=== PATIENT | female | born 2000 | race Caucasian/White ===

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

== ENCOUNTER 2021-02-07 15:58 | Outpatient (RCR) | payer OTHER, SELFPAY ==
--- NOTE | 2021-02-07 17:52 | PTOPEVAL ---
Thank you for referring Lenny Cottrell to [facility].? The patient is scheduled to be seen for therapy?for 1 additional visit. Please review, sign, date and return this plan of care PARVEZ. I agree with and certify that the following plan of care is medically necessary. Referring Physician Date Admitting Provider: Attending Provider: katie gilmore Referring Provider: *PT Outpatient Evaluation Start: 02/07/21 16:05 Freq: Status: Active Protocol: Document 02/07/21 16:00 YENI (Rec: 02/07/21 17:13 YENI [email or web address]) Therapy Assessment Status Assessment Status Assessment Status Evaluation Evaluation Information Problem Diagnosis patellofemoral pain left Onset 01/20/21 Subjective Information Pt. reports that she was Query Text:As Reported By Patient/ walking up steps at school and Family began noting left knee pain. She describes initial pain on the inside of the left knee. She reports that she no longer has much pain. She reports she has been doing regular exercise with some short distance running once to twice a week. She states that her goal is to decrease her left knee pain. Pain Assessment Self Report Self Report Pain Level 0 Pain Score Pain Score 0: Self Report Lower Extremity Range of Motion General Lower Extremity Range of Motion Gross Lower Extremity Range of Motion Pt. presents with 0-135 Comments degrees left knee AROM Lower Extremity Muscle Strength Testing General Lower Extremity Strength Gross Lower Extremity Strength -bilateral hip flexion 5/5 -bilateral hip extension 5/5 -bilateral hip abduction 5/5 -bilateral knee extension 5/5 -bilateral knee flexion 5/5 -bilateral ankle dorsiflexion 5/5 Palpation Assessment Palpation Palpation TTP noted at the pes anserine on the left with light palpation Special Tests-Lower Extremity Knee Special Tests Juan Miguel's Positive Left Valgus Stress Test Knee at 0 Degrees Positive Left Antonio's Positive Left Gait Assessment Gait Assessment Additional Ambulation Comments Pt. ambulates without deviation General Exercise General Exercises Exercise Description -SLS on BOSU x 1 minute x 2 Query Text:Elfego
== END 2021-02-14 17:51 | disposition home or self-care (01) ==
LOC: CHSPT 15:58
DX: M25.562 Pain in left knee (principal); Z98.890 Other specified postprocedural states
CPT/HCPCS: 97110; 97140; 97161

== ENCOUNTER 2021-07-05 10:33 | Outpatient (CLI) | payer OTHER, SELFPAY ==
[2021-07-05 10:59] LABS: Basophils Absolute Auto 0.11 K/mm3 (0.00-0.10); Basophils Percent Auto 0.8 % (0.0-1.0); Eosinophils Absolute Auto 0.55 K/mm3 (0.02-0.50); Eosinophils Percent Auto 4.1 % (1.0-6.0); Hematocrit 41.2 % (35.0-49.0); Hemoglobin 13.7 g/dL (12.0-15.0); Immature Granulocyte Absolute 0.04 K/mm3 (0.00-0.00); Immature Granulocyte Percent A 0.3 % (0.0-0.0); Lymphocytes Absolute Auto 2.24 K/mm3 (1.10-4.50); Lymphocytes Percent Auto 16.7 % (18.0-42.0); Mean Corpuscular HGB Conc 33.3 g/dL (32.0-36.0); Mean Corpuscular Hemoglobin 31.2 pg (27.0-31.0); Mean Corpuscular Volume 93.8 fL (78.0-102.0); Mean Platelet Volume 8.9 fl (9.2-11.8); Monocytes Absolute Auto 0.88 K/mm3 (0.10-0.90); Monocytes Percent Auto 6.6 % (2.0-11.0); Neutrophils Absolute Auto 9.6 K/mm3 (1.7-7.2); Neutrophils Percent Auto 71.5 % (50.0-70.0); Platelet Count Result 299 K/mm3 (150-420); Red Blood Count 4.39 M/mm3 (4.20-5.40); Red Cell Distribution Width 11.9 % (11.6-14.4); White Blood Count 13.4 K/mm3 (4.8-10.8)
[2021-07-05 11:04] LABS: Monoscreen Negative (Negative); Negative Monotest Control Negative (Negative); Positive Monotest Control Positive (Positive)
[2021-07-06 18:32] LABS: Alanine Aminotransferase 25 U/L (14-59); Albumin Level 4.6 g/dL (3.4-5.0); Alkaline Phosphatase 87 U/L (50-130); Anion Gap 11 mmol/L (8-16); Aspartate Amino Transferase 22 U/L (15-37); Bilirubin,Total 0.7 mg/dL (0.00-1.00); Blood Urea Nitrogen 15 mg/dL (7-18); Calcium 9.5 mg/dL (8.5-10.1); Carbon Dioxide 24 mmol/L (21-32); Chloride 101 mmol/L (98-108); Estimated Glomerular Filt Rate > 60; Free T3 2.16 pg/mL (2.91-4.70); Free T4 Free Thyroxine 0.77 ng/dL (0.76-1.46); Glucose 80 mg/dL (70-99); Osmolality Calculated 281 mOsm/kg (285-295); Potassium 4.5 mmol/L (3.5-5.1); Sodium 136 mmol/L (136-145); Thyroid Stimulating Hormone 0.52 uIU/mL (0.52-4.13); Total Protein 8.2 g/dL (6.4-8.2)
== END 2021-07-05 10:34 | disposition home or self-care (01) ==
LOC: CHSLAB 10:36
PROVIDERS: PCP Internal Medicine; Visit Provider Internal Medicine
DX: E03.9 Hypothyroidism, unspecified (principal); J02.9 Acute pharyngitis, unspecified
CPT/HCPCS: 80053; 84439; 84443; 84481; 85025; 86308; 87070; 87077; 87081; 87880

== ENCOUNTER 2021-08-07 09:25 | Outpatient (CLI) | payer OTHER, SELFPAY ==
--- NOTE | ~2021-08-07 | US_ITS ---
EXAMINATION: US thyroid DATE: 08/07/2021 10:40 INDICATION: TECHNIQUE: Multiple ultrasound images of the thyroid were obtained. COMPARISON: None. FINDINGS: The right thyroid lobe measures 5.6 x 1.6 x 1.8 cm. Right lobe volume 7.8 mL. The left thyroid lobe m easures 5.2 x 1.4 x 2.0 cm. Left lobe volume 6.8 mL. Thyroid isthmus measures 0.3 cm. Heterogeneous t hyroid parenchyma. Normal to slightly increased vascularity. Numerous bilateral circumscribed cystic areas all of which measure less than 5 mm and contained bright echogenic foci, many of which display comet tail artifacts. IMPRESSION: 1. Enlarged heterogeneous thyroid gland. 2. 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 No FNA or follow-up required. Reviewed, dictated and finalized at location K.
[2021-08-07 10:16] LABS: Basophils Absolute Auto 0.12 K/mm3 (0.00-0.10); Basophils Percent Auto 1.2 % (0.0-1.0); Eosinophils Absolute Auto 0.35 K/mm3 (0.02-0.50); Eosinophils Percent Auto 3.4 % (1.0-6.0); Hematocrit 42.3 % (35.0-49.0); Hemoglobin 14.3 g/dL (12.0-15.0); Immature Granulocyte Absolute 0.04 K/mm3 (0.00-0.00); Immature Granulocyte Percent A 0.4 % (0.0-0.0); Lymphocytes Absolute Auto 2.61 K/mm3 (1.10-4.50); Lymphocytes Percent Auto 25.4 % (18.0-42.0); Mean Corpuscular HGB Conc 33.8 g/dL (32.0-36.0); Mean Corpuscular Hemoglobin 31.4 pg (27.0-31.0); Mean Platelet Volume 8.4 fl (9.2-11.8); Monocytes Absolute Auto 0.78 K/mm3 (0.10-0.90); Monocytes Percent Auto 7.6 % (2.0-11.0); Neutrophils Absolute Auto 6.4 K/mm3 (1.7-7.2); Platelet Count Result 294 K/mm3 (150-420); Red Blood Count 4.55 M/mm3 (4.20-5.40); Red Cell Distribution Width 11.8 % (11.6-14.4); White Blood Count 10.3 K/mm3 (4.8-10.8)
[2021-08-09 04:42] LABS: Prolactin 4.2 ng/mL (***); Thyroid Peroxidase Antibodies <1 IU/mL (<9)
[2021-08-10 11:31] LABS: Parathyroid Intact 20 pg/mL (14-64); Thyroxin Binding Globulin 31.9 mcg/mL (13.5-30.9)
[2021-08-12 12:11] LABS: Immunoglobulin E 16 kU/L (<=114)
== END 2021-08-07 09:26 | disposition home or self-care (01) ==
LOC: CHSIMG 09:30
PROVIDERS: PCP Internal Medicine; Visit Provider Internal Medicine
DX: L30.9 Dermatitis, unspecified (principal); E03.8 Other specified hypothyroidism; H10.10 Acute atopic conjunctivitis, unspecified eye
CPT/HCPCS: 36415; 76536; 82785; 83970; 84146; 84442; 85025; 86038; 86376

== ENCOUNTER 2021-09-17 10:07 | Outpatient (CLI) | payer OTHER, SELFPAY ==
--- NOTE | ~2021-09-17 | XR_ITS ---
EXAMINATION: XR abdomen obstructive series DATE: 09/17/2021 10:37 INDICATION: Umbilical pain. Nausea and vomiting. Chronic constipation. TECHNIQUE: Supine and upright views of the abdomen. FINDINGS: 07/14/2020 The visualized lung parenchyma is normal.. There is a nonobstructive bowel gas pattern. Moderate gas in the colon which appears to be nonobstructive. There is no free air. IMPRESSION: 1. No acute abdominal abnormality. Reviewed, dictated and finalized at location A.
--- NOTE | ~2021-09-17 | CT_ITS ---
EXAMINATION: CT abdomen pelvis w con DATE: 09/17/2021 13:07 INDICATION: Epigastric pain with nausea and vomiting TECHNIQUE: Computed tomography (CT) of the abdomen and pelvis was performed with 100 mL Omnipaque-300 intravenous contrast. Automated exposure control and iterative reconstruction technique were employe d. The dose-length product was 294.88 mGy-cm. COMPARISON: Obstructive series dated 09/17/2021 FINDINGS: Lung bases are clear. Heart size is normal. No pericardial or pleural effusion. Liver, gallbladder, s pleen, pancreas, bilateral adrenal glands and kidneys are normal. Scattered fluid throughout the nono bstructed small bowel and the large bowel extending to the sigmoid colon consistent with diarrhea. Sm all amount of ascites in the deep pelvis. Bladder and anteverted uterus are normal. Small amount of l ikely physiologic free fluid in the deep pelvis. No abscess or free intraperitoneal gas. No pathologi annalise enlarged abdominal or pelvic lymphadenopathy. Mild thoracolumbar levocurvature. IMPRESSION: 1. Fluid throughout the large and small bowel consistent with diarrhea. Correlate clinically for cory roenteritis. 2. Small amount of likely physiologic free fluid in the pelvis. Reviewed, dictated and finalized at location A. IMPRESSION: 1. Fluid throughout the large and small bowel consistent with diarrhea. Correla te clinically for gastroenteritis. 2. Small amount of likely physiologic free fluid in the pelvis.
[2021-09-17 10:27] LABS: Basophils Absolute Auto 0.05 K/mm3 (0.00-0.10); Basophils Percent Auto 0.5 % (0.0-1.0); Eosinophils Absolute Auto 0.31 K/mm3 (0.02-0.50); Eosinophils Percent Auto 3.3 % (1.0-6.0); Hematocrit 41.2 % (35.0-49.0); Hemoglobin 13.5 g/dL (12.0-15.0); Immature Granulocyte Absolute 0.03 K/mm3 (0.00-0.00); Immature Granulocyte Percent A 0.3 % (0.0-0.0); Lymphocytes Percent Auto 25.8 % (18.0-42.0); Mean Corpuscular HGB Conc 32.8 g/dL (32.0-36.0); Mean Corpuscular Hemoglobin 30.5 pg (27.0-31.0); Mean Corpuscular Volume 93.2 fL (78.0-102.0); Mean Platelet Volume 8.6 fl (9.2-11.8); Monocytes Absolute Auto 0.59 K/mm3 (0.10-0.90); Monocytes Percent Auto 6.3 % (2.0-11.0); Neutrophils Absolute Auto 5.9 K/mm3 (1.7-7.2); Neutrophils Percent Auto 63.8 % (50.0-70.0); Platelet Count Result 273 K/mm3 (150-420); Red Blood Count 4.42 M/mm3 (4.20-5.40); Red Cell Distribution Width 11.8 % (11.6-14.4); White Blood Count 9.3 K/mm3 (4.8-10.8)
[2021-09-17 10:42] LABS: Alanine Aminotransferase 16 U/L (14-59); Albumin Level 3.4 g/dL (3.4-5.0); Alkaline Phosphatase 53 U/L (50-130); Anion Gap 7 mmol/L (8-16); Aspartate Amino Transferase 13 U/L (15-37); Bilirubin,Total 0.1 mg/dL (0.00-1.00); Blood Urea Nitrogen 16 mg/dL (7-18); Calcium 8.8 mg/dL (8.5-10.1); Carbon Dioxide 28 mmol/L (21-32); Chloride 105 mmol/L (98-108); Estimated Glomerular Filt Rate > 60; Glucose 92 mg/dL (70-99); Osmolality Calculated 291 mOsm/kg (285-295); Potassium 4.1 mmol/L (3.5-5.1); Sodium 140 mmol/L (136-145)
== END 2021-09-17 10:08 | disposition home or self-care (01) ==
PROVIDERS: PCP Internal Medicine; Visit Provider Internal Medicine
DX: R10.9 Unspecified abdominal pain (principal); K59.00 Constipation, unspecified
CPT/HCPCS: 36415; 74019; 74177; 80053; 83735; 85025; Q9967

== ENCOUNTER 2021-09-26 08:30 | Outpatient (CLI) | payer OTHER, SELFPAY ==
[2021-09-26 09:46] LABS: Free T3 3.05 pg/mL (2.91-4.70); Free T4 Free Thyroxine 1.16 ng/dL (0.76-1.46); Thyroid Stimulating Hormone 0.44 uIU/mL (0.52-4.13)
== END 2021-09-26 08:31 | disposition home or self-care (01) ==
LOC: CHSLAB 08:31
PROVIDERS: PCP Internal Medicine; Visit Provider Internal Medicine
DX: E03.4 Atrophy of thyroid (acquired) (principal)
CPT/HCPCS: 36415; 84439; 84443; 84481

== ENCOUNTER 2022-01-07 09:11 | Outpatient (CLI) | payer OTHER, SELFPAY ==
[2022-01-07 10:48] LABS: Free T3 2.87 pg/mL (2.18-3.98); Free T4 Free Thyroxine 0.98 ng/dL (0.76-1.46); Thyroid Stimulating Hormone 0.49 uIU/mL (0.36-3.74)
== END 2022-01-07 09:12 | disposition home or self-care (01) ==
LOC: CHSLAB 09:13
PROVIDERS: PCP Internal Medicine; Visit Provider Internal Medicine
DX: E03.8 Other specified hypothyroidism (principal)
CPT/HCPCS: 36415; 84439; 84443; 84481

== ENCOUNTER 2022-09-05 10:39 | Outpatient (CLI) | payer OTHER, SELFPAY ==
[2022-09-05 12:40] LABS: Alanine Aminotransferase 21 U/L (14-59); Albumin Level 4.2 g/dL (3.4-5.0); Alkaline Phosphatase 76 U/L (46-116); Anion Gap 12 mmol/L (8-16); Aspartate Amino Transferase 11 U/L (15-37); Bilirubin,Total 0.3 mg/dL (0.00-1.00); Blood Urea Nitrogen 7 mg/dL (7-18); Calcium 9.9 mg/dL (8.5-10.1); Carbon Dioxide 28 mmol/L (21-32); Chloride 102 mmol/L (98-108); Estimated Glomerular Filt Rate > 60; Free T3 3.41 pg/mL (2.18-3.98); Free T4 Free Thyroxine 0.96 ng/dL (0.76-1.46); Glucose 79 mg/dL (70-99); HIV 1 P24 AG Negative (Negative); HIV 1/2 AB Negative (Negative); Osmolality Calculated 291 mOsm/kg (285-295); Potassium 4.1 mmol/L (3.5-5.1); Sodium 142 mmol/L (136-145); Thyroid Stimulating Hormone 0.32 uIU/mL (0.36-3.74); Total Protein 7.3 g/dL (6.4-8.2)
[2022-09-09 13:03] LABS: RPR Screen Non-Reactive (Non-Reactive)
[2022-09-10 14:14] LABS: Hepatitis B Core Antibody Nonreactive (Nonreactive); Hepatitis B Surface Antigen Nonreactive (Nonreactive); Hepatitis C Virus Antibody Nonreactive
== END 2022-09-05 10:40 | disposition home or self-care (01) ==
LOC: CHSLAB 10:46
PROVIDERS: PCP Internal Medicine
DX: Z00.00 Encounter for general adult medical examination without abnormal findings (principal); A64 Unspecified sexually transmitted disease
CPT/HCPCS: 36415; 80053; 84439; 84443; 84481; 86592; 86705; 86803; 87340; 87806

== ENCOUNTER → 2022-11-22 10:54 | Outpatient (CLI) | payer OTHER, SELFPAY ==
--- NOTE | ~2022-11-22 | MR_ITS ---
EXAMINATION: MR knee LT w con DATE: 11/22/2022 12:32 INDICATION: Left knee pain TECHNIQUE: Magnetic resonance imaging (MRI) of the left knee was performed without intravenous contra st. Sequences included coronal T1-weighted FSE, coronal T1-weighted FS FSE, coronal fluid sensitive FSE STIR, sagittal T1-weighted FSE, sagittal T1-weighted FS FSE, sagittal fluid sensitive FSE STIR, a nd axial T1-weighted FSE and axial fluid sensitive FSE STIR. COMPARISON: MRI dated 04/29/2020, radiographs dated 04/27/2020 and fluoroscopic images dated 11/22/2022 FINDINGS: Since the imaging from 2020 there has been interval revision of the anterior cruciate ligament recons truction with a pair of new metallic buttons at the lateral femoral condyle. These result in a signif icantly larger amount of metallic magnetic field artifact which obscures significant portions of the medial compartment and essentially entire intercondylar notch and lateral compartment. Medial compartment: There is medial extrusion of the now minimal residual tissue of the medial meniscal body consistent w ith interval partial meniscectomy. The posterior horn of the medial meniscus is also small with linea r contrast-filled tear extending obliquely across the posterior inferior corner of the remaining meni scal tissue. Complex tear with small meniscal flap at the junction of the anterior horn and body of t he medial meniscus. Visualized portions of the cartilage at the medial compartment appears normal wit h the cartilage along the lateral margin of the medial tibial plateau and anterior to central weightb earing medial femoral condyle obscured by the magnetic field artifact. Lateral compartment: Lateral meniscus and cartilage in the lateral compartment are entirely obscured. Patellofemoral compartment: Normal patellar articular cartilage. The visualized cartilage at the cephalad half of the trochlea ap pears normal. The more inferior trochlear cartilage is obscured. Ligaments and tendons: Posterior cruciate ligament and the graft the anterior cruciate ligament reconstruction are obscured. The medial collateral ligament is normal. The fibular collateral ligament complex is obscured. Mild patellar tendinopathy with unchanged irregular contour to the bone at the anterior margin of the infe rior patella and at the anterior tibial tuberosity consistent with prior patellar tendon harvest for the initial anterior cruciate ligament reconstruction. Quadriceps tendon is normal. There appears to have been interval gracilis tendon harvesting for the revised anterior cruciate ligament reconstructi on. The remaining visualized medial hamstring tendons as well as the iliotibial band are normal. The biceps femoris tendon is obscured. Fluid: No loose osteochondral bodies identified. Osseous/other: Where not obscured the marrow signal is normal. No fracture or pathologic marrow replacing process. T here is anterior subluxation of the tibia with respect to the femoral condyles which suggests either laxity or failure of the nonvisualized anterior cruciate ligament reconstruction. IMPRESSION: 1. Markedly limited study with significant increase in the metallic magnetic field artifact likely re sulting from a new fixation buttons related to interval revision of a prior anterior cruciate ligamen t reconstruction which appears to have utilized to gracilis tendon autograft. This obscures the entir e lateral compartment, the lateral portion of the medial compartment and the intervening intercondyla r notch including the posterior cruciate ligament and anterior cruciate ligament reconstruction. 2. Anterior subluxation of the tibia with respect to the distal femur raising concern for either laxi ty or failure of the revised anterior cruciate ligament reconstruction. 3. Interval partial medial meniscectomy with residual versus recurrent tears at the posterior horn an d junction of the body a
--- NOTE | ~2022-11-22 | XR_ITS ---
EXAMINATION: XR fl inj knee LT for MR/CT DATE: 11/22/2022 12:10 INDICATION: Left knee pain TECHNIQUE: A time-out was performed to verify the patient's name, date of , and procedure to b e performed. The procedure including the risks, benefits, and alternatives was discussed with the pat ient. Risks discussed included bleeding and infection. The patient understood the risks and agreed to proceed. The skin overlying the lateral aspect of the left knee joint was prepped and draped in usu al sterile fashion. Anesthetic was administered with 1% lidocaine subcutaneously. A 22 G needle was advanced under fluoroscopic guidance into the joint. Injection of 1 mL of Omnipaque 240 confirmed i ntra-articular position of the needle. Subsequently, injectate consisting of 40 mL of 7:3:2 mixture of sterile saline:Omnipaque 240:1% lidocaine mixed 200:1 with 529 mg/mL Multihance gadolinium contras t was injected with intra-articular administration confirmed with intermittent fluoroscopy. The needl e was removed and the entry site was cleaned and dressed. There were no immediate complications. Flu oroscopy exposure time was 0.1 minutes. The total number of images was 6. FINDINGS: Real-time fluoroscopy demonstrates the needle in the right knee joint. Postoperative change of prior anterior cruciate ligament reconstruction. IMPRESSION: 1. Successful left knee joint injection of dilute gadolinium contrast mixture for subsequent MRI arth rogram which will be dictated separately. Reviewed, dictated and finalized at location A. IMPRESSION: 1. Successful left knee joint injection of dilute gadolinium contrast mixture f or subsequent MRI arthrogram which will be dictated separately.
== END ==
DX: M25.562 Pain in left knee (principal); S83.112A Anterior subluxation of proximal end of tibia, left knee, initial encounter; T14.90XA Injury, unspecified, initial encounter
CPT/HCPCS: 20610; 73722; 77002; A9577; Q9967

== ENCOUNTER 2023-02-14 08:21 | Outpatient (CLI) | payer OTHER, SELFPAY ==
--- NOTE | ~2023-02-14 | US_ITS ---
EXAMINATION: US thyroid DATE: 02/14/2023 11:18 INDICATION: Thyromegaly TECHNIQUE: Multiple ultrasound images of the thyroid were obtained. COMPARISON: 08/07/2021 FINDINGS: The right thyroid lobe measures 5.0 x 1.4 x 1.7 cm. The left thyroid lobe measures 4.8 x 2.0 x 1.5 c m. No significant interval change in multiple <5 mm anechoic cysts in both thyroid lobes with middle and inferior predominance. The majority of these demonstrate a single internal echogenic focus, the larger with posterior comet tailing consistent with inspissated colloid. There is normal echotexture, echogenicity and vascular flow throughout the surrounding thyroid gland. IMPRESSION: 1. No interval change in multiple <5 mm bilateral TI-RADS 1 colloid cysts which require no biopsy or further follow-up. Reviewed, dictated and finalized at location A. 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
[2023-02-14 08:34] LABS: Basophils Absolute Auto 0.07 K/mm3 (0.00-0.10); Basophils Percent Auto 0.9 % (0.0-1.0); Eosinophils Absolute Auto 0.35 K/mm3 (0.02-0.50); Eosinophils Percent Auto 4.3 % (1.0-6.0); Hematocrit 39.6 % (35.0-49.0); Hemoglobin 13.5 g/dL (12.0-15.0); Immature Granulocyte Absolute 0.03 K/mm3 (0.00-0.00); Immature Granulocyte Percent A 0.4 % (0.0-0.0); Lymphocytes Absolute Auto 3.25 K/mm3 (1.10-4.50); Lymphocytes Percent Auto 39.6 % (18.0-42.0); Mean Corpuscular HGB Conc 34.1 g/dL (32.0-36.0); Mean Corpuscular Hemoglobin 31.4 pg (27.0-31.0); Mean Corpuscular Volume 92.1 fL (78.0-102.0); Mean Platelet Volume 8.5 fl (9.2-11.8); Monocytes Absolute Auto 0.71 K/mm3 (0.10-0.90); Monocytes Percent Auto 8.6 % (2.0-11.0); Neutrophils Absolute Auto 3.8 K/mm3 (1.7-7.2); Neutrophils Percent Auto 46.2 % (50.0-70.0); Platelet Count Result 306 K/mm3 (150-420); Red Cell Distribution Width 11.9 % (11.6-14.4); White Blood Count 8.2 K/mm3 (4.8-10.8)
[2023-02-14 08:38] LABS: Appearance Urine Clear (Clear); Bilirubin Urine Negative (Negative); Blood Urine Negative (Negative); Color Urine Yellow (Yellow); Glucose Urine UA Negative (Negative); Ketones Urine Negative (Negative); Leukocyte Esterase Ur Negative LEU/UL (Negative); Nitrate Urine Negative (Negative); Protein Urine Negative (Negative); Specific Grav Ur >= 1.030 (1.010-1.020); Urobilinogen Urine 0.2 mg/dL (0.2-1.0)
[2023-02-14 08:45] LABS: Add Urine Microscopic? NO
[2023-02-14 09:23] LABS: Alanine Aminotransferase 22 U/L (14-59); Alkaline Phosphatase 62 U/L (46-116); Anion Gap 3 mmol/L (8-16); Aspartate Amino Transferase 11 U/L (15-37); Bilirubin,Total 0.7 mg/dL (0.00-1.00); Blood Urea Nitrogen 8 mg/dL (7-18); Calcium 8.8 mg/dL (8.5-10.1); Carbon Dioxide 33 mmol/L (21-32); Chloride 101 mmol/L (98-108); Cholesterol 189 mg/dL (0-200); Estimated Glomerular Filt Rate > 60; Free T3 3.41 pg/mL (2.18-3.98); Free T4 Free Thyroxine 0.92 ng/dL (0.76-1.46); Glucose 78 mg/dL (70-99); HDL Direct 54 mg/dL (40-60); LDL Cholesterol Calculated 100 mg/dL (<130); Osmolality Calculated 281 mOsm/kg (285-295); Potassium 3.9 mmol/L (3.5-5.1); Sodium 137 mmol/L (136-145); Total Protein 6.5 g/dL (6.4-8.2); Triglycerides 174 mg/dL (0-150)
== END 2023-02-14 08:22 | disposition home or self-care (01) ==
PROVIDERS: PCP Internal Medicine; Visit Provider Internal Medicine
DX: Z00.00 Encounter for general adult medical examination without abnormal findings (principal); E04.9 Nontoxic goiter, unspecified
CPT/HCPCS: 36415; 76536; 80053; 80061; 81003; 84439; 84443; 84481; 85025

== ENCOUNTER 2023-08-25 11:24 | Outpatient (CLI) | payer OTHER, SELFPAY ==
[2023-08-25 12:32] LABS: Free T3 3.39 pg/mL (2.18-3.98); Free T4 Free Thyroxine 1.37 ng/dL (0.76-1.46); Thyroid Stimulating Hormone 0.54 uIU/mL (0.36-3.74)
== END 2023-08-25 11:25 | disposition home or self-care (01) ==
LOC: CHSLAB 11:26
PROVIDERS: PCP Internal Medicine; Visit Provider Internal Medicine
DX: E03.8 Other specified hypothyroidism (principal)
CPT/HCPCS: 36415; 84439; 84443; 84481